=== PATIENT | male | born 1985 | race Caucasian/White ===

== ENCOUNTER 2020-05-20 01:35 | Emergency (ER) | payer OTHER ==
[2020-05-20] MEDS ORDERED: LIDOCAINE 2% MPF 5 ML VIAL ONE (02:15)
[2020-05-20 03:00] LABS: Absolute Lymphocytes (CBC) 2.2 K/uL (0.7-4.9); Basophils % 1.2 % (0-1.3); Hematocrit 45.9 % (39.6-49.0); Lymphocytes % 26.8 % (15.3-44.8); MPV 7.4 fL (7.6-11.3); RBC Red Blood Cell Count 5.18 M/uL (4.33-5.43)
[2020-05-20 03:07] LABS: Protime INR 1.02
[2020-05-20 03:48] LABS: ALT/SGPT 42 U/L (12-78); AST/SGOT 22 U/L (15-37); Alkaline Phosphatase 79 U/L (45-117); BUN Blood Urea Nitrogen 12 mg/dL (7-18); Bicarbonate 25 mmol/L (21-32); Bilirubin Direct 0.2 mg/dL (0-0.2); Bilirubin Total 0.8 mg/dL (0.2-1.0); Glucose Level 86 mg/dL (74-106); Potassium 3.8 mmol/L (3.5-5.1); Sodium Level 138 mmol/L (136-145)
[2020-05-20 04:24] LABS: Barbiturates NEGATIVE (NEGATIVE); Benzodiazepines NEGATIVE (NEGATIVE); Cocaine NEGATIVE (NEGATIVE); METHAMPHETAM NEGATIVE (NEGATIVE); Methadone NEGATIVE (NEGATIVE); Opiates NEGATIVE (NEGATIVE); Phencyclidine NEGATIVE (NEGATIVE); THC Cannibis NEGATIVE (NEGATIVE)
[2020-05-20] MEDS ORDERED: ONDANSETRON 4 MG/2 ML VIAL ONE (04:39)
[2020-05-20] MEDS ORDERED: MORPHINE 2 MG/ML SYR ONE ×2 (04:39→06:49)
--- NOTE | 2020-05-20 06:30 | ER ---
Nurse's Notes [facility] [place] Name: Cornel Jacques Age: 34 yrs Sex: Male : 1985 Arrival Date: 05/20/2020 Time: 01:47 Bed 3 Private MD: Diagnosis: Suicidal ideations;Foreign body in small intestine Presentation: 05/20 01:53 Chief complaint: EMS states: Pt reported he cut his arm and swallowed a razor about an ea hour and thirty minutes ago. Reported SI. Pt accompanied by [employer]p guards. Coronavirus screen: Proceed with normal triage. Ebola Screen: No symptoms or risks identified at this time. Initial Sepsis Screen: Does the patient meet any 2 criteria? No. Patient's initial sepsis screen is negative. Does the patient have a suspected source of infection? No. Patient's initial sepsis screen is negative. Risk Assessment: Do you want to hurt yourself or someone else? Patient reports no desire to harm self or others. Onset of symptoms was May 20, 2020. 01:53 Method Of Arrival: EMS: [facility] ea 01:53 Acuity: OLGA 2 ea Historical: - Allergies: 02:01 Penicillins; ea - Home Meds: 02:01 Abilify oral oral [Active]; Zoloft Oral [Active]; Benadryl Oral [Active]; ea - PSHx: 02:01 left arm surgery; ea - Immunization history:: Adult Immunizations up to date. - Social history:: Smoking status: unknown. Screenin:56 Abuse screen: Denies threats or abuse. Nutritional screening: No deficits noted. ea Tuberculosis screening: No symptoms or risk factors identified. Fall Risk None identified. Assessment: 02:01 General: Appears in no apparent distress. Behavior is calm, cooperative, appropriate ea for age. Pain: Complains of pain in right arm. Neuro: Level of Consciousness is awake, alert, obeys commands, Oriented to person, place, time, situation. Cardiovascular: Patient's skin is warm and dry. Respiratory: Airway is patent Respiratory effort is even, unlabored, Respiratory pattern is regular, symmetrical. Injury Description: Laceration sustained to dorsal aspect of right forearm is clean, 2.6 to 7.5 cm long, was sustained 1-2 hours ago. a small amount of bleeding noted at this time. 03:23 Reassessment: Patient appears in no apparent distress at this time. Patient and/or mg2 family updated on plan of care and expected duration. Pain level reassessed. Patient is alert, oriented x 3, equal unlabored respirations, skin warm/dry/pink. 04:15 Reassessment: Patient and/or family updated on plan of care and expected duration. Pain ea level reassessed. Patient is alert, oriented x 3, equal unlabored respirations, skin warm/dry/pink. 05:23 Reassessment: Patient and/or family updated on plan of care and expected duration. Pain ea level reassessed. Patient is alert, oriented x 3, equal unlabored respirations, skin warm/dry/pink. Awaiting on acceptance from facility to transfer. 06:10 Reassessment: report given to ZULMA Lopes [facility], ED, patient signed the form. mg2 07:00 Reassessment: RECD REPORT FROM CECILE MAYA. 34YO WM P/W SUICIDAL IDEATION AND INGESTION OF bp RAZOR BLADE. TRANSFER IN PROCESS FOR [facility]. TRANSPORT PENDING. 07:36 Reassessment: [facility] AT B/S TO TRANSPORT PT, [facility] OFFICERS AT B/S. bp Psych: 01:57 Subjective: Delusions are denied, Hallucinations are denied Having thoughts of suicide. ea Plan for suicide is pt reports he was going to swallow a razor. Interventions: pt in wrist cuffs, and ankle cuffs in place prior to arrival per usp guards. Suicide Risk Assessment: Sad Person Scale: Sex of patient: Male: Score 1 point. Age of patient: Score 1 point if patient 15-34. Depression: Score 1 point if signs of depression are present. Previous Attempt: Score 1 point if patient has previously attempted suicide. Rational Thinking: Score 0 point if patient has rational thinking. Safety Checks:. Safety Checks: pt accompanied by guards. 01:57 Objective: Patient is cooperative, Speech is normal, Affect is flat, Patient has ea mutilated themselves by self mutilation scars noted to baylee forearms. Laceration noted to right forearm. Pt denies substance abuse. Vital Signs: 01:53 BP 128 / 92; Pulse 74; Resp 18; Temp 97.6; Pulse Ox 96% ; Weight 99.79 kg; Height 5 ft. ea 9 in. (175.26 cm); 03:25 BP 129 / 84; Pulse 76; Resp 18; Pulse Ox 100% on R/A; mg2 05:12 BP 126 / 95; Pulse 68; Resp 18; Pulse Ox 100% on R/A; mg2 06:24 BP 118 / 85; Pulse 58; Resp 18; Pulse Ox 100% ; ea 07:00 BP 125 / 92; Pulse 80; Resp 16; Pulse Ox 98% ; bp 07:37 BP 118 / 85; Pulse 56; Resp 14; Temp 98; Pulse Ox 97% ; bp 01:53 Body Mass Index 32.49 (99.79 kg, 175.26 cm) ea ED Course: 01:47 Patient arrived in ED. ds1 01:48 Cecile Segura, ZULMA is Primary Nurse. ea 01:49 Luther Hoffman MD is Attending Physician. tw4 01:56 Triage completed. ea 01:56 Patient has correct armband on for positive identification. Bed in low position. Call ea light in reach. 01:59 Arm band placed on left wrist. Patient placed in an exam room, on a stretcher, on ea laboratory monitor, on pulse oximetry. 02:23 EKG done, by ED staff, reviewed by Luther Hoffman MD. mg2 03:00 Assist provider with laceration repair on right arm that was between 7.6 to 12.5 cm mg2 using 6 shirin. Set up tray. Performed by Luther Hoffman MD Dressed with 4X4s, Patient tolerated well. 03:00 Inserted saline lock: 20 gauge in right antecubital area, using aseptic technique. mg2 Blood collected. by ZULMA Huber. 03:02 Abdomen 1 View (KUB) XRAY In Process Unspecified. EDMS 03:02 CXR XRAY In Process Unspecified. EDMS 04:08 CT Abd/Pelvis - Without Contrast In Process Unspecified. EDMS 04:32 Initiated transfer through [facility] care to [facility]. Stated they did not have bed ar5 availability and can try another facility. 05:05 Attempted to initiate transfer with [facility]. Stated they cannot take the pt. due to ar5 pt, being suicidal. 05:08 Initiated transfer to [facility] spoke with Yamileth Dee. ar5 05:55 Acceptance given by Yamileth Dee. Pt. going to [facility] ER. Accepting ar5 physician Taqueria Eckert. 06:42 Patient admitted, IV remains in place. ea 07:15 Primary Nurse role handed off by Cecile Segura RN bp 07:15 Donavan Parish, RN is Primary Nurse. bp Administered Medications: 02:22 Drug: Lidocaine (2 %) 1 mg {Note: administered by the provider.} Route: Infiltration; mg2 04:46 Drug: morphine 2 mg {Note: RASS 0.} Route: IVP; Site: right antecubital; mg2 05:14 Follow up: Response: No adverse reaction; Pain is decreased ea 04:46 Drug: Zofran (Ondansetron) 4 mg Route: IVP; Site: right antecubital; mg2 05:15 Follow up: Response: No adverse reaction ea 06:42 Drug: morphine 2 mg Route: IVP; Site: right antecubital; ea 07:36 Follow up: Response: Pain is decreased bp 07:30 Drug: fentaNYL (PF) 50 mcg Route: IVP; Site: right antecubital; bp 07:36 Follow up: Response: Pain is decreased bp Outcome: 06:29 ER care complete, transfer ordered by . tw4 07:36 Transferred by ground EMS to [facility], Transfer form completed. bp 07:36 Condition: stable 07:36 Instructed on the need for transfer. 07:43 Patient left the ED. bp Signatures: Dispatcher [employer] [facility] Elaina Fregoso ds1 Cecile Segura RN RN ea Peltier, Brian RN Luther Keane MD MD 4 Dionicio Rees RN RN [facility] Gloria Noguera ar5 Corrections: (The following items were deleted from the chart) 01:56 01:53 Chief complaint: EMS states: Pt reported he cut his arm and swallowed a razor ea about an hour and thirty minutes ago. Reported SI ea 03:24 02:23 No provider procedures requiring assistance completed. mg2 mg2 06:10 06:10 Reassessment: report given to ZULMA Lopes [facility], ED, [facility] mg2 06:33 01:53 Acuity: OLGA 3 ea ea
--- NOTE | 2020-05-20 06:30 | EDPHYS ---
Physician Documentation [facility] Name: Cornel Jacques Age: 34 yrs Sex: Male : 1985 Arrival Date: 05/20/2020 Time: 01:47 Bed 3 Private MD: ED Physician Luther Hoffman HPI: 05/20 03:04 This 34 yrs old Male presents to ER via EMS with complaints of Suicidal tw4 Ideation. 03:04 The patient presents to the emergency department with suicide ideation, and the patient tw4 has a plan, to cut oneself and bleed, swallowed razor blade. Onset: The symptoms/episode began/occurred today. Associated signs and symptoms: Pertinent positives; abdominal pain. Severity of symptoms: At their worst the symptoms were mild in the emergency department the symptoms are unchanged. The patient has not experienced similar symptoms in the past. 03:05 Past psychiatric history: Prior diagnosis: depression, Psychiatric medications include: tw4 Zoloft, abilify. Historical: - Allergies: 02:01 Penicillins; ea - Home Meds: 02:01 Abilify oral oral [Active]; Zoloft Oral [Active]; Benadryl Oral [Active]; ea - PSHx: 02:01 left arm surgery; ea - Immunization history:: Adult Immunizations up to date. - Social history:: Smoking status: unknown. ROS: 03:06 Constitutional: Negative for fever, chills, and weight loss, Eyes: Negative for injury, tw4 pain, redness, and discharge, Cardiovascular: Negative for chest pain, palpitations, and edema, Respiratory: Negative for shortness of breath, cough, wheezing, and pleuritic chest pain, Abdomen/GI: Negative for abdominal pain, nausea, vomiting, diarrhea, and constipation, Back: Negative for injury and pain, Skin: Negative for injury, rash, and discoloration, Neuro: Negative for headache, weakness, numbness, tingling, and seizure. 03:06 Psych: Positive for depression, suicide gesture, suicidal ideation, Negative for drug dependence, alcohol dependence, auditory hallucinations, visual hallucinations, homicidal ideation. Exam: 03:06 Constitutional: This is a well developed, well nourished patient who is awake, alert, tw4 and in no acute distress. Head/Face: Normocephalic, atraumatic. Chest/axilla: Normal chest wall appearance and motion. Nontender with no deformity. No lesions are appreciated. Cardiovascular: Regular rate and rhythm with a normal S1 and S2. No gallops, murmurs, or rubs. Normal PMI, no JVD. No pulse deficits. Respiratory: Lungs have equal breath sounds bilaterally, clear to auscultation and percussion. No rales, rhonchi or wheezes noted. No increased work of breathing, no retractions or nasal flaring. Abdomen/GI: Soft, non-tender, with normal bowel sounds. No distension or tympany. No guarding or rebound. No evidence of tenderness throughout. Back: No spinal tenderness. No costovertebral tenderness. Full range of motion. MS/ Extremity: Pulses equal, no cyanosis. Neurovascular intact. Full, normal range of motion. Neuro: Awake and alert, GCS 15, oriented to person, place, time, and situation. Cranial nerves II-XII grossly intact. Motor strength 5/5 in all extremities. Sensory grossly intact. Cerebellar exam normal. Normal gait. 03:06 Psych: Behavior/mood is cooperative, Affect is flat, Oriented to person, place, time, Patient having thoughts of suicide. Vital Signs: 01:53 BP 128 / 92; Pulse 74; Resp 18; Temp 97.6; Pulse Ox 96% ; Weight 99.79 kg; Height 5 ft. ea 9 in. (175.26 cm); 03:25 BP 129 / 84; Pulse 76; Resp 18; Pulse Ox 100% on R/A; mg2 05:12 BP 126 / 95; Pulse 68; Resp 18; Pulse Ox 100% on R/A; mg2 06:24 BP 118 / 85; Pulse 58; Resp 18; Pulse Ox 100% ; ea 07:00 BP 125 / 92; Pulse 80; Resp 16; Pulse Ox 98% ; bp 07:37 BP 118 / 85; Pulse 56; Resp 14; Temp 98; Pulse Ox 97% ; bp 01:53 Body Mass Index 32.49 (99.79 kg, 175.26 cm) ea MDM: 01:49 Patient medically screened. tw4 06:29 Differential diagnosis: depression. Data reviewed: vital signs, nurses notes. Data tw4 interpreted: Pulse oximetry: Interpretation: normal. Counseling: I had a detailed discussion with the patient and/or guardian regarding: the historical points, exam findings, and any diagnostic results supporting the discharge/admit diagnosis. Special discussion:. ED course: Transferred to higher level of care due to lack of GI. Accepted at [facility] \[id number] by T[place]. 05/20 01:51 Order name: Acetaminophen; Complete Time: 04:39 05/20 04:39 Interpretation: Abnormal: ACETA < 2.0. 05/20 01:51 Order name: Basic Metabolic Panel; Complete Time: 04:39 05/20 04:39 Interpretation: Normal except: GFR 79. 05/20 01:51 Order name: CBC with Diff; Complete Time: 03:35 05/20 03:35 Interpretation: Normal except: MPV 7.4. 05/20 01:51 Order name: ETOH Level; Complete Time: 03:35 05/20 03:35 Interpretation: Within normal limits: ETOH < 10. 05/20 01:51 Order name: Hepatic Function; Complete Time: 04:39 05/20 04:39 Interpretation: Normal except: GLOB 4.0; A/G 1.0. 05/20 01:51 Order name: PT-INR; Complete Time: 03:35 05/20 03:35 Interpretation: Within normal limits: PT 12.0. 05/20 01:51 Order name: Ptt, Activated; Complete Time: 03:35 05/20 03:35 Interpretation: Within normal limits: PTT 28.5. 05/20 01:51 Order name: Salicylate; Complete Time: 03:35 05/20 03:35 Interpretation: Within normal limits: KENNY < 1.7. 05/20 01:51 Order name: Urine Drug Screen; Complete Time: 04:39 05/20 04:40 Interpretation: Within normal limits. 05/20 01:51 Order name: Abdomen 1 View (KUB) XRAY 05/20 01:51 Order name: CXR XRAY 05/20 03:35 Order name: CT Abd/Pelvis - Without Contrast 05/20 01:51 Order name: Wound Care; Complete Time: 02:03 05/20 01:51 Order name: EKG; Complete Time: 01:51 05/20 01:51 Order name: EKG - Nurse/Tech; Complete Time: 02:12 05/20 01:51 Order name: IV Saline Lock; Complete Time: 03:06 05/20 01:51 Order name: Labs collected and sent; Complete Time: 03:06 05/20 01:51 Order name: Urine Dipstick-Ancillary (obtain specimen); Complete Time: 05:15 4 Administered Medications: 02:22 Drug: Lidocaine (2 %) 1 mg {Note: administered by the provider.} Route: Infiltration; mg2 04:46 Drug: morphine 2 mg {Note: RASS 0.} Route: IVP; Site: right antecubital; mg2 05:14 Follow up: Response: No adverse reaction; Pain is decreased ea 04:46 Drug: Zofran (Ondansetron) 4 mg Route: IVP; Site: right antecubital; mg2 05:15 Follow up: Response: No adverse reaction ea 06:42 Drug: morphine 2 mg Route: IVP; Site: right antecubital; ea 07:36 Follow up: Response: Pain is decreased bp 07:30 Drug: fentaNYL (PF) 50 mcg Route: IVP; Site: right antecubital; bp 07:36 Follow up: Response: Pain is decreased bp Disposition: 05/20/20 06:29 Transfer ordered to [facility]. Diagnosis are Suicidal ideations, Foreign body in small intestine. - Reason for transfer: Higher level of care. - Accepting physician is Dr Eckert. - Condition is Stable. - Problem is new. - Symptoms have improved. Signatures: Dispatcher [employer] Cecile Bosch RN RN ea Peltier, Brian RN RN Luther Madrid MD MD tw4 Dionicio Rees RN RN mg2 Corrections: (The following items were deleted from the chart) 07:43 06:29 05/20/2020 06:29 Transfer ordered to [facility]. Diagnosis is bp Suicidal ideations; Foreign body in small intestine. Reason for transfer: Higher level of care. Accepting physician is Dr Eckert. Condition is Stable. Problem is new. Symptoms have improved. tw4
--- NOTE | 2020-05-20 07:25 | EKG ---
Test Date: 2020-05-20 Test Time: 02:11:50 [employer] Business Development Officer: MG MEASUREMENT RESULTS: Intervals: Rate: 66 MS: 132 QRSD: 104 QT: 406 QTc: 425 Fertile: P: 43 MS: 132 QRS: 24 T: 36 INTERPRETIVE STATEMENTS: Normal sinus rhythm Normal ECG No previous ECG available for comparison Electronically Signed On 05-20-20 07:24:45 CDT by Caleb Marsh
[2020-05-20] MEDS ORDERED: FENTANYL CITR 100 MCG/2 ML ONE (07:37)
[2020-05-20 08:11] VITALS: BP 118/85; TEMP 98; O2SAT 97
--- NOTE | 2020-05-21 09:19 | RAD REPORT ---
EXAM DESCRIPTION: RAD - Abdomen 1 View (KUB) - 05/20/2020 3:02 am CLINICAL HISTORY: 34-year-old male, swallowed a foreign body. TECHNIQUE: A single AP supine x-ray of the abdomen was performed on 05/20/2020 at 2:38 AM. Comparison: None. FINDINGS: The bowel gas pattern is nonspecific and nonobstructive. There are multiple overlying artifacts including adult, chain and fur mixer operator leads. No definite radiopaque foreign body is appreciated within the abdomen. No abnormal air collections are identified. The visualized lungs are clear. The cardiac silhouette is normal in size. No focal soft tissue abnormalities are seen. No acute osseous abnormalities are identified. IMPRESSION: 1. Nonspecific and nonobstructive bowel gas pattern. 2. No definite radiopaque foreign bodies are appreciated within the abdomen. However, there are numer ous overlying artifacts which does result in degradation of image quality. Electronically signed by: Diamond Melo DO 05/20/2020 4:20 AM CDT Due to temporary technical issues with the PACS/Fluency reporting system, reports are being signed by the in house radiologist without review as a courtesy to ensure prompt reporting. The interpreting r adiologist is fully responsible for the content of the report.
--- NOTE | 2020-05-21 09:20 | RAD REPORT ---
EXAM DESCRIPTION: RAD - Chest Single View - 05/20/2020 3:02 am CLINICAL HISTORY: Swallowed FB COMPARISON: None. TECHNIQUE: AP Chest. FINDINGS: Normal cardiac size. Pulmonary vasculature appears normal. Normal cardiomediastinal contou rs. Lungs are clear. Pleural spaces are clear. Unremarkable soft tissues and bones. IMPRESSION: 1. Unremarkable chest. Electronically signed by: Ca Casanova DO 05/20/2020 4:16 AM CDT Due to temporary technical issues with the PACS/Fluency reporting system, reports are being signed by the in house radiologist without review as a courtesy to ensure prompt reporting. The interpreting r adiologist is fully responsible for the content of the report.
--- NOTE | 2020-05-21 09:24 | RAD REPORT ---
EXAM DESCRIPTION: CT - Abdomen Pelvis Wo Contrast - 05/20/2020 6:32 am CLINICAL HISTORY: R/o swallowed FB razor blade COMPARISON: None. TECHNIQUE: CT ABDOMEN PELVIS WITHOUT IV CONTRAST on 05/20/2020 3:35 AM CDT This exam was performed according to our departmental dose-optimization program, which includes autom ated exposure control, adjustment of the mA and/or kV according to patient size and/or use of iterati ve reconstruction technique. FINDINGS: Lower lungs are clear. Abdomen: The liver is normal in appearance. There is no biliary dilatation. Gallbladder is normal in appearance. The pancreas and spleen are normal in appearance. The adrenal glands and kidneys are unre markable. Abdominal aorta is normal in course and caliber without aneurysm. There is no free air. There is no r etroperitoneal adenopathy. Pelvis: There is no bowel obstruction. Urinary bladder is unremarkable. There is no free fluid. Appen suzette is normal. Metallic razor blade is within the loop of presumed jejunum in the left lateral abdome n. Skeleton: There are no acute osseous findings. No suspicious bony lesions. IMPRESSION: Probably intrajejunal razor blade. No evidence of free air. Electronically signed by: Benjie Best MD 05/20/2020 4:14 AM CDT Due to temporary technical issues with the PACS/Fluency reporting system, reports are being signed by the in house radiologist without review as a courtesy to ensure prompt reporting. The interpreting r adiologist is fully responsible for the content of the report.
== END 2020-05-20 07:43 | disposition short-term general hospital (02) ==
LOC: ER 01:35
DX: T18.3XXA Foreign body in small intestine, initial encounter (principal); Z88.0 Allergy status to penicillin
CPT/HCPCS: 93005 ×2; 85025; 80048; 36415; 80320; 80329 ×2; 85610; 80076; 80307 ×8; 85730; 74176; 74018; 71045; 96375; 96374; 99285; J2405; J2270; J3010